=== PATIENT | male | born 1990 ===

== ENCOUNTER 2017-06-24 20:48 | Emergency (ER) | payer OTHER ==
[2017-06-24 20:58] VITALS: BP 104/72; TEMP 97.9
--- NOTE | 2017-06-24 21:34 | C.PDOC ---
History Of Present Illness 26 y/o male presents to the emergency room complaining of chronic left shoulder pain s/p surgery. Patient states pain became exacerbated today after he worked on a car with pulling and tugging motions. Denies any weakness or numbness. Taking naproxen with minimal relief. Patient requests stronger pain medication. Also states he needs a refill for Ambien for his insomnia, complains his prescription was "lost in the mail". Time Seen by Provider: 06/24/17 21:03 Chief Complaint (Nursing): Upper Extremity Problem/Injury History Per: Patient History/Exam Limitations: no limitations Onset/Duration Of Symptoms: Worse Since (today) Current Symptoms Are (Timing): Still Present Exacerbating Factor(s): Strenuous Use Of Affected Area Past Medical History Reviewed: Historical Data, Nursing Documentation, Vital Signs Vital Signs: Last Vital Signs Temp 97.9 F 06/24/17 21:43 Pulse 66 06/24/17 21:43 Resp 20 06/24/17 21:43 BP 104/72 06/24/17 21:43 Pulse Ox 100 06/24/17 21:43 - Medical History PMH: Anxiety, Depression, Post Traumatic Stress Disorder Other Surgeries: Left shoulder surgery Family History: States: No Known Family Hx - Social History Hx Tobacco Use: No Hx Alcohol Use: No Hx Substance Use: No - Immunization History Hx Tetanus Toxoid Vaccination: No Hx Influenza Vaccination: Yes Hx Pneumococcal Vaccination: No Review Of Systems Except As Marked, All Systems Reviewed And Found Negative. Musculoskeletal: Positive for: Shoulder Pain Neurological: Negative for: Weakness, Numbness Physical Exam - Physical Exam Appears: Non-toxic, No Acute Distress Skin: Normal Color, Warm, Dry Head: Atraumatic, Normacephalic Eye(s): bilateral: Normal Inspection Extremity: Normal ROM (with full ROM of left shoulder), No Tenderness, Capillary Refill (< 2 sec), No Deformity, No Swelling Pulses: Left Radial: Normal, Right Radial: Normal Neurological/Psych: Oriented x3, Normal Speech, Normal Motor, Normal Sensation ED Course And Treatment O2 Sat by Pulse Oximetry: 99 (RA) Pulse Ox Interpretation: Normal Progress Note: Patient offered Toradol IM and refused medication. States he already took Motrin and Naproxen. Discussed the hospital's pain policy in detail. Will d/c patient with rx for 1 tab Ambien. [facility]. Disposition Counseled Patient/Family Regarding: Diagnosis, Need For Followup - Disposition Referrals: Non [facility] Provider, [Primary Care Provider] - Disposition: HOME/ ROUTINE Disposition Time: 21:30 Condition: STABLE Additional Instructions: Please follow up wth PMD Continue naproxen Return to ER if worse Prescriptions: Zolpidem Tartrate [Ambien] 10 mg PO HS #1 tablet Instructions: Shoulder Sprain Forms: [employer] (Thai) - POA Present On Arrival: None - Clinical Impression Clinical Impression: Sprain of shoulder, left, Insomnia - PA / [employer] / Resident Statement MD/DO has reviewed & agrees with the documentation as recorded. - Scribe Statement The provider has reviewed the documentation as recorded by the Scribe (Vandana Yung) All medical record entries made by the Scribe were at my direction and personally dictated by me. I have reviewed the chart and agree that the record accurately reflects my personal performance of the history, physical exam, medical decision making, and the department course for this patient. I have also personally directed, reviewed, and agree with the discharge instructions and disposition.
[2017-06-24 21:45] VITALS: PULSE 66; RESP 20
[2017-06-24 23:18] VITALS: O2SAT 99
== END 2017-06-24 21:45 | disposition home or self-care (01) ==
LOC: SUPCPDRO 20:48 → C.ER 20:48
DX: S43.402A Unspecified sprain of left shoulder joint, initial encounter (principal); X50.9XXA Other and unspecified overexertion or strenuous movements or postures, initial encounter; G47.00 Insomnia, unspecified